=== PATIENT | male | born 1965 | race Caucasian/White ===

== ENCOUNTER 2017-02-02 15:05 | Emergency (ER) | payer BC, OTHER ==
[2017-02-02 15:56] VITALS: BP 148/95
--- NOTE | 2017-02-02 16:18 | UC ---
Lower Extremity/Ankle HPI - HPI Summary HPI Summary: fell injuring right lower leg on a fall where the ladder slipped and he road in down ---was able to walk but leg is swollen and tender to touch laterally - History of Current Complaint Chief Complaint: UCTrauma Stated Complaint: LEG INJURY Time Seen by Provider: 02/02/17 15:44 Hx Obtained From: Patient Onset/Duration: Sudden Onset, Still Present, Worse Since - daily Severity Initially: Moderate Severity Currently: Moderate Pain Intensity: 6 Pain Scale Used: 0-10 Numeric Aggravating Factor(s): Standing, Ambulation Alleviating Factor(s): Rest, Elevation Able to Bear Weight: Yes Related History: Occupational Injury - Allergies/Home Medications Allergies/Adverse Reactions: Allergies Allergy/AdvReac Type Severity Reaction Status Date / Time No Known Allergies Allergy Verified 02/02/17 15:11 PMH/Surg Hx/FS Hx/Imm Hx Previously Healthy: No Cancer History: Colorectal Cancer Other History Of: Negative For: Anticoagulant Therapy - Surgical History Surgical History: Yes Surgery Procedure, Year, and Place: colonostomy 11/07 reversal 03/09 - Family History Known Family History: Positive: None, Other - Social History Occupation: Employed Full-time Lives: With Family Alcohol Use: Rare Alcohol Amount: 2 shots today Substance Use Type: Marijuana, Prescribed Smoking Status (MU): Current Every Day Smoker Type: Cigarettes Amount Used/How Often: 1/4 PPD Length of Time of Smoking/Using Tobacco: 14 years Have You Smoked in the Last Year: Yes Household Exposure Type: Cigarettes Cessation Counseling: Patient Advised to Stop Review of Systems Constitutional: Negative Skin: Negative Eyes: Negative ENT: Negative Respiratory: Negative Cardiovascular: Negative Gastrointestinal: Negative Genitourinary: Negative Motor: Negative Neurovascular: Negative Musculoskeletal: Arthralgia - lateral right knee, Myalgia - right lower leg calf Neurological: Negative Psychological: Negative All Other Systems Reviewed And Are Negative: Yes Physical Exam Triage Information Reviewed: Yes Appearance: Well-Appearing, No Pain Distress, Well-Nourished Vital Signs: Initial Vital Signs Temp 99.6 F 02/02/17 15:09 Pulse 102 02/02/17 15:09 Resp 20 02/02/17 15:09 BP 177/101 02/02/17 15:09 Pulse Ox 97 02/02/17 15:09 Vital Signs Reviewed: Yes Eye Exam: Normal Eyes: Positive: Conjunctiva Clear ENT Exam: Normal ENT: Positive: Normal ENT inspection, Hearing grossly normal. Negative: Nasal congestion, Nasal drainage, Trismus, Muffled/hoarse voice Dental Exam: Normal Neck exam: Normal Neck: Positive: Supple, Nontender Respiratory Exam: Normal Respiratory: Positive: Chest non-tender, Lungs clear, Normal breath sounds, No respiratory distress, No accessory muscle use Cardiovascular Exam: Normal Cardiovascular: Positive: RRR, No Murmur, Pulses Normal, Brisk Capillary Refill Musculoskeletal: Positive: Strength Intact, ROM Intact, Edema @ - right lower leg Neurological Exam: Normal Neurological: Positive: Alert, Muscle Tone Normal Psychological Exam: Normal Psychological: Positive: Normal Response To Family, Age Appropriate Behavior Skin Exam: Normal Lower Extremity Course/Dx - Course Course Of Treatment: patient refused transfer to the [facility]---patient advised to re-seek medical care [facility] and to go to the hospital - Differential Dx/Diagnosis Differential Diagnosis/HQI/PQRI: Cellulitis, Contusion, Fracture (Open), Gout, Sprain, Strain Provider Diagnoses: Right lower leg pain, nicotine dependent, hypertension with dx of high blood pressure Discharge - Discharge Plan Condition: Guarded Disposition: AGAINST MEDICAL ADVICE Patient Education Materials: Deep Venous Thrombosis (ED), Leg Edema (ED) Forms: *Work Release Referrals: Titi Gibbs MD [Primary Care Provider] - Additional Instructions: I have many worries about the swelling in your leg and it causing a life ending or life threatening condition---I strongly encourage you to go to the emergency department now for evaluation
== END 2017-02-02 16:26 | disposition left against medical advice (07) ==
LOC: UCEAST 15:05
DX: M79.661 Pain in right lower leg (principal); I10 Essential (primary) hypertension; D12.6 Benign neoplasm of colon, unspecified; F12.90 Cannabis use, unspecified, uncomplicated
CPT/HCPCS: 99211; G0463

== ENCOUNTER 2017-02-04 09:37 | Emergency (ER) | payer OTHER ==
[2017-02-04 09:44] VITALS: BP 180/106
--- NOTE | 2017-02-04 11:22 | UC ---
Lower Extremity/Ankle HPI - HPI Summary HPI Summary: injured right leg on a ladder about 5 days ago--seen to days ago with pain and swelling in calf refused Ultra sound and signed out AMA---today returns for re- evaluation, swelling resolved, some slight bruising continues - History of Current Complaint Chief Complaint: UCLowerExtremity Stated Complaint: NEED WORK RELEASE Time Seen by Provider: 02/04/17 11:18 Hx Obtained From: Patient Onset/Duration: Sudden Onset, Resolved Severity Initially: Moderate Severity Currently: None Pain Intensity: 0 Pain Scale Used: 0-10 Numeric Aggravating Factor(s): Nothing Alleviating Factor(s): Rest, Ice Able to Bear Weight: Yes - Allergies/Home Medications Allergies/Adverse Reactions: Allergies Allergy/AdvReac Type Severity Reaction Status Date / Time No Known Allergies Allergy Verified 02/04/17 09:44 PMH/Surg Hx/FS Hx/Imm Hx Previously Healthy: Yes Cardiovascular History: Hypertension - "white coat syndrome" Cancer History: Colorectal Cancer Other History Of: Negative For: Anticoagulant Therapy - Surgical History Surgical History: Yes Surgery Procedure, Year, and Place: colonostomy 11/07 reversal 03/09 - Family History Known Family History: Positive: None, Other - Social History Occupation: Employed Full-time Lives: With Family Alcohol Use: Rare Substance Use Type: Marijuana Smoking Status (MU): Current Every Day Smoker Type: Cigarettes Amount Used/How Often: 1/4 PPD Length of Time of Smoking/Using Tobacco: 14 years Have You Smoked in the Last Year: Yes Household Exposure Type: Cigarettes Review of Systems Constitutional: Negative Skin: Bruising - minimal resolving bruising right calf Eyes: Negative ENT: Negative Respiratory: Negative Cardiovascular: Negative Gastrointestinal: Negative Genitourinary: Negative Motor: Negative Neurovascular: Negative Musculoskeletal: Negative Neurological: Negative Psychological: Negative All Other Systems Reviewed And Are Negative: Yes Physical Exam Triage Information Reviewed: Yes Appearance: Well-Appearing, No Pain Distress, Well-Nourished Vital Signs: Initial Vital Signs Temp 99.0 F 02/04/17 09:38 Pulse 84 02/04/17 09:38 Resp 16 02/04/17 09:38 BP 180/106 02/04/17 09:38 Pulse Ox 98 02/04/17 09:38 Vital Signs Reviewed: Yes Eye Exam: Normal Eyes: Positive: Conjunctiva Clear ENT Exam: Normal ENT: Positive: Normal ENT inspection, Hearing grossly normal. Negative: Nasal congestion, Nasal drainage, Trismus, Muffled/hoarse voice Dental Exam: Normal Neck exam: Normal Neck: Positive: Supple, Nontender Respiratory Exam: Normal Respiratory: Positive: Chest non-tender, No respiratory distress, No accessory muscle use Cardiovascular Exam: Normal Cardiovascular: Positive: RRR, No Murmur, Pulses Normal, Brisk Capillary Refill Musculoskeletal Exam: Normal Musculoskeletal: Positive: Strength Intact, ROM Intact, No Edema Neurological Exam: Normal Neurological: Positive: Alert, Muscle Tone Normal Psychological Exam: Normal Skin Exam: Normal Lower Extremity Course/Dx - Course Course Of Treatment: may return to work, ice prn, follow blood pressure with pcp ,nicotine cesastion information - Differential Dx/Diagnosis Differential Diagnosis/HQI/PQRI: Contusion, Infection, Sprain, Strain Provider Diagnoses: Resolving contusion right lower leg, nicotine dependent, highblood pressure with dx of hypertension Discharge - Discharge Plan Condition: Stable Disposition: HOME Patient Education Materials: How to Stop Smoking (ED), Contusion in Adults (ED) , DASH Eating Plan (ED), Hypertension (ED) Forms: *Work Release Referrals: Titi Gibbs MD [Primary Care Provider] - 2 Weeks
== END 2017-02-04 11:28 | disposition home or self-care (01) ==
LOC: UCEAST 09:37
DX: S80.11XD Contusion of right lower leg, subsequent encounter (principal); W22.8XXD Striking against or struck by other objects, subsequent encounter; I10 Essential (primary) hypertension; D12.6 Benign neoplasm of colon, unspecified; F17.210 Nicotine dependence, cigarettes, uncomplicated
CPT/HCPCS: 99211; G0463